=== PATIENT | male | born 1985 ===

== ENCOUNTER 2021-02-05 08:35 | Emergency (ER) | payer OTHER ==
[2021-02-05 08:50] VITALS: BP 114/73
[2021-02-05] MEDS ORDERED: MAG/ALUM/SIMETH 30 ML UDCUP PO ONE (09:30)
[2021-02-05] MEDS ORDERED: MAG/ALUM/SIMETH 30 ML UDCUP ONE (09:34)
[2021-02-05] MEDS ORDERED: LIDOCAINE HCL 2% VISCOUS 15 ML UDCUP ONE (09:34)
[2021-02-05 09:57] VITALS: BP 111/69
[2021-02-05] MEDS ORDERED: FAMO-136 PO (10:17)
== END 2021-02-05 11:09 | disposition home or self-care (01) ==
LOC: EDH 08:35
DX: R10.13 Epigastric pain (principal); R68.0 Hypothermia, not associated with low environmental temperature; K21.9 Gastro-esophageal reflux disease without esophagitis
CPT/HCPCS: 82270